=== PATIENT | female | born 2000 | race Caucasian/White ===

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

== ENCOUNTER 2021-10-03 22:45 | Emergency (ER) | payer MEDICAID ==
[~2021-10-03] VITALS: Ht 162.6 cm; Wt 59.1 kg
[~2021-10-03 22:45] MED LIST changes: +VITAMINE200
[2021-10-03 23:04] VITALS: TEMP 98
[2021-10-04 00:12] VITALS: BP 118/87; PULSE 81
== END 2021-10-04 00:12 | disposition home or self-care (01) ==
LOC: COL.ER 22:45
DX: S60.561A Insect bite (nonvenomous) of right hand, initial encounter (principal); Z28.310 Unvaccinated for COVID-19; W57.XXXA Bitten or stung by nonvenomous insect and other nonvenomous arthropods, initial encounter

== ENCOUNTER 2022-07-31 16:09 | Outpatient (CLI) | payer MEDICAID ==
[~2022-07-31] VITALS: Ht 162.6 cm; Wt 60.5 kg
[~2022-07-31 16:09] MED LIST changes: +AMOXICILLIN 8751 TAB PO; +REGLAN 10MG10 MG/TAB PO; +VITAMIN B-625 MG PO
[2022-07-31 16:12] VITALS: BP 111/71; PULSE 85; TEMP 98.4
[2022-07-31 16:53] LABS: COLLECTION METHOD CLEAN CATCH
[2022-07-31 16:57] LABS: SQUAMOUS EPITHELIAL 0-2 /hpf (0-10); URINE BACTERIA Rare /hpf (NONE SEEN); URINE RBC None Seen /hpf (0-2); URINE WBC 0-2 /hpf (0-2)
[2022-07-31 16:59] LABS: URINE APPEARANCE Clear (CLEAR/HAZY); URINE COLOR Yellow (YELLOW)
--- NOTE | 2022-07-31 16:59 | NUR ---
1612 PATIENT HERE FOR COMPLAINTS OF BLOOD ON TOILET PAPER WHEN WIPES, UNSURE IF ITS VAGINALLY OR WHEN PEES. [facility] FHT 150 EDC 11/28 PUTS BABY AT 22 6 DAYS. BABY VERY ACTIVE AND PATIENT FEELS BABY KICK. NO CONTRACTIONS FELT OR ON MONITOR. AMNIOTRACE NEGATIVE. SVE O/THICK/THIGH. DR GIL CALLED AND UPDATED ON ALL ABOV INFORMATION. ORDER TO SEND UA TO LAB. 1700 DR GIL VIEWS MONITOR STRIP AND ORDERS GIVEN TO TAKE PATIENT OF [facility]. WAIT FOR UA RESULTS.
[2022-07-31 17:00] LABS: PH 5.5 (5.0-8.5); URINE BLOOD Negative (NEGATIVE); URINE GLUCOSE Negative (NEGATIVE); URINE KETONE Negative (NEGATIVE); URINE NITRATE Negative (NEGATIVE); URINE PROTEIN(semi-quant) Negative (NEGATIVE); URINE UROBILINOGEN 0.2 E.U/dL (0.2-1.0)
--- NOTE | 2022-07-31 17:03 | NUR ---
[address] GIL WITH ORDES TO DISMISS TO HOME AT THIS TIME
== END 2022-07-31 17:09 | disposition home or self-care (01) ==
LOC: LDRO 16:09
PROVIDERS: Obstetrics & Gynecology
DX: O46.90 Antepartum hemorrhage, unspecified, unspecified trimester (principal); Z3A.00 Weeks of gestation of pregnancy not specified

== ENCOUNTER 2023-09-20 20:01 | Emergency (ER) | payer SELFPAY ==
[~2023-09-20] VITALS: Ht 162.6 cm; Wt 77.3 kg
[~2023-09-20 20:01] MED LIST changes: +B COMPLEX #11 TA1 PO; +IBU800 M1 PO; +PNV-SELECT1 TAB PO; +ZOFRAN 4MG T4 MG/TAB PO; +ZOLOFT 25MG25 MG PO
[2023-09-20 20:10] VITALS: TEMP 98.2
[2023-09-20] MEDS ORDERED: Acetaminophen 325 MG TAB PO ONE (21:00)
[2023-09-20] MEDS ORDERED: Ibuprofen 400 MG TAB PO ONE (21:00)
[2023-09-20 22:05] VITALS: BP 125/90; PULSE 86
== END 2023-09-20 22:11 | disposition home or self-care (01) ==
LOC: COL.ER 20:01
DX: S90.32XA Contusion of left foot, initial encounter (principal); W20.8XXA Other cause of strike by thrown, projected or falling object, initial encounter